=== PATIENT | female | born 1990 | race Two or more races ===

== ENCOUNTER 2024-12-21 08:09 | Outpatient (AMB) | payer BC, OTHER, SELFPAY ==
[2024-12-21 08:26] VITALS: BP 117/78; PULSE 73; RESP 18; TEMP 36.2; O2SAT 99; BMI 33.5
--- NOTE | 2024-12-21 08:26 | AMB.GYNCLNOT ---
Vital Signs 12/21/24 08:26 Height 1.55 m Height Method Stated Weight 80.456 kg Weight Measurement Method Standing Scale BMI 33.5 BP 117/78 Blood Pressure Source Automatic Cuff Blood Pressure Location Left Upper Arm Position Sitting Respiration 18 Pulse 73 Pulse Source Monitor Temp 97.2 F Temp Source Oral Pulse Oximetry (%) 99 Oxygen Delivery Method Room Air Allergies/Home Meds Allergies & Medications Allergies No Known Allergies Allergy (Verified 12/21/24 08:27) Medication Reconciliation doxycycline monohydrate 100 mg capsule 100 mg PO BID #14 caps 12/21/24 [Rx] ibuprofen 800 mg tablet 800 mg PO TID 14 days #42 tabs 12/21/24 [Rx] metronidazole 500 mg tablet 500 mg PO BID 14 days #28 tabs 12/21/24 [Rx] Intake Visit Data Collection New Patient or Established: Established Patient (seen at [facility] within 3 years) Reason for Visit:: pelvic pain and f/u sono results Seen by Clinical Staff ONLY (RN/MA): No Nutrition Technician Required: No Do You Feel Safe at Home: Yes Authorities Contacted: N/A PCP or OBGYN visit in last 3 months: Yes Hx Now: No Are you currently on any form of Control: No Last menstrual period: 12/18/24 Pain Present Currently: No Pain Scale Used: Patel-Bourgeois/Numerical Pain scale:: 0 Smoking Status Smoking Status: Never smoker Rn Clinical Review history Rn Clinical Review History Menstrual regularity: regular Flow: normal Monthly: Yes Age at menarche: 13 Menopausal: No Currently sexually active: Yes If not currently sexually active, have you ever been sexually active: Yes Questionnaires Covid-19 Vaccine Questionnaire Has patient been vacinated for Covid-19 Have you been vacinated for Covid-19: Yes PHQ-9 PHQ-2 Over the last 2 weeks, how often have you been bothered by any of the following problems? 1. Little interest or pleasure in doing things: not at all 2. Feeling down, depressed, or hopeless: not at all Total score: 0 PHQ-9 3. Trouble falling or staying asleep, or sleeping too much: Not at all 4. Feeling tired or having little energy: Not at all 5. Poor appetite or overeating: Not at all 6. Feeling bad about yourself - or that you are a failure or have let yourself or your family down: Not at all 7. Trouble concentrating on things, such as reading the newspaper or watching television: Not at all 8. Moving or speaking so slowly that other people could have noticed? - Or the opposite - being so fidgety or restless that you have been moving around a lot more than usual: not at all 9. Thoughts that you would be better off or of hurting yourself in some way: Not at all Total score: 0 If you checked off any problems, how difficult have these problems made it for you to do your work, take care of things at home, or get along with other people?: not difficult at all Source: Developed by Drs. Jesús Garcia, Bee Rodriguez, Emanuel Miller and colleagues, with an educational melany from [employer]. Depression screen completed yes Social History Living Situation History Marital Status: Single Lives With: Family Housing: House Tobacco History Smoking Status: Never smoker Alcohol History Alcohol Intake: Never Domestic Abuse History Do You Feel Safe at Home: Yes Past Medical History Past Medical History Have you ever been diagnosed with any of the following: History of Present Illness HPI Narrative 34-year-old 3 para 2 comes today with complaints of low pelvic pain, backache and neck, breast tenderness for 5 weeks. Last period December 18. Menses is normal flow. Increased cramping. Reports periods are every month. Patient reports pelvic pain is 5 out of 10. Patient was seen by her primary care. Labs and ultrasound were done. Denies social habits. Denies surgery. And denies existence of chronic illnesses. Patient denies complaints of vaginitis. Reports dyspareunia for the last 4 months as well. Denies UTI symptoms. Denies change in vaginal discharge. Review of Systems Review of Systems Systems Reviewed: All systems reviewed, normal except as documented Exam Narrative Physical exam: Abdomen soft and nontender. No masses palpated. No complaints of pain with palpation. External genitalia is clean. No lesions. Vagina pink with small menses. No foul odor. No cervical motion tenderness. Normal pelvic exam, test was done December 10 and that was negative. Urine culture was negative. No growth. WBCs were normal 9.7. H&H were 13.3 and 42. Normal platelets. CMP was normal. Pelvic ultrasound showed normal size uterus. There was a 0.9 cm x 0.7 cm central endometrial fluid. Ultrasound felt that findings were consistent with hematom metria or pyometria. Normal endometrial stripe. Ovaries normal size. There are multiple small cysts less than 0.8 cm in both ovaries General Limitations: no limitations General Appearance: alert, in no apparent distress, comfortable, cooperative, healthy appearing, well developed and well groomed Neck Neck exam: Present normal inspection, full ROM and trachea midline Chest Chest inspection: Present normal inspection and symmetric chest wall rise Resp Respiratory exam: Present normal lung sounds bilaterally Card Cardiovascular exam: Present regular rate, normal rhythm and normal heart sounds Abdominal Abdominal exam: Present soft and normal bowel sounds Psych Psychiatric exam: Present normal affect and normal mood Assessment & Plan Diagnosis / Problem List (1) Female pelvic inflammatory disease, unspecified: Status: Acute (2) Candidiasis of female genitalia: Status: Acute Plan Consult was DESKTOP SUPPORT TECHNICIAN. Patient needs ceftriaxone 500 mg IM. Not available in stock. Patient will be called when available. Started on doxycycline 100 twice daily x 14 days and metronidazole 500 mg p.o. twice daily x 14 days. New swab plus was collected. Discussed ultrasound findings with patient. Patient to return in 2 weeks for follow-up Additional Plan Follow Up: 2 Weeks (call patient with ceftriaxone available, rtc 2 week f/u) Office Procedures OB Clinic LOC & Office Proc's Nursing/Assessment Patient Status: Established Patient OB Clinic Nursing Assessment: BP Monitoring, Medication Reconciliation, Update PMH in EMR and Vital Signs OB Clinic Coordination of Care: Consent,records obtained, informed consent, Education Simp Pt/Fam, Lab and Imaging orders and Staff clarify orders Established Patient Charge Established Patient Point Assignment: 90 Established Patient Point Charge: EP Level 3 (80-115)
--- NOTE | 2024-12-21 08:26 | AMB.GYNCLNOT ---
Vital Signs 12/21/24 08:26 Height 1.55 m Height Method Stated Weight 80.456 kg Weight Measurement Method Standing Scale BMI 33.5 BP 117/78 Blood Pressure Source Automatic Cuff Blood Pressure Location Left Upper Arm Position Sitting Respiration 18 Pulse 73 Pulse Source Monitor Temp 97.2 F Temp Source Oral Pulse Oximetry (%) 99 Oxygen Delivery Method Room Air Allergies/Home Meds Allergies & Medications Allergies No Known Allergies Allergy (Verified 12/21/24 08:27) Medication Reconciliation doxycycline monohydrate 100 mg capsule 100 mg PO BID #14 caps 12/21/24 [Rx] ibuprofen 800 mg tablet 800 mg PO TID 14 days #42 tabs 12/21/24 [Rx] metronidazole 500 mg tablet 500 mg PO BID 14 days #28 tabs 12/21/24 [Rx] Intake Visit Data Collection New Patient or Established: New Patient (never been to [facility]) (for pelvic pain and pelvic sono results) Reason for Visit:: pelvic pain and pelvic sono results Do You Feel Safe at Home: Yes Authorities Contacted: N/A PCP or OBGYN visit in last 3 months: Yes Smoking Status Smoking Status: Never smoker Questionnaires Social History Tobacco History Smoking Status: Never smoker Alcohol History Alcohol Intake: Never Domestic Abuse History Do You Feel Safe at Home: Yes Past Medical History Past Medical History Have you ever been diagnosed with any of the following: History of Present Illness HPI Narrative 34 yo for complaints of low pelvic pain, back ache and breast tenderness x 4 month. Patient also complains of dyspareunia. lmp 12/18/24 x 6 days, q month. increase cramps with menses. no complaints of vaginitis, normal discharge per patient. denies fever and chils. pain 5/10. Does not take NSAID. Monogamous. Patient denies history of chronic illness. Denies surgeries. Denies social habits. Pelvic sono and labs were drawn by family practice provider Review of Systems Review of Systems Systems Reviewed: All systems reviewed, normal except as documented Exam Narrative Physical exam: Vital signs stable. Lungs clear no wheezes. Abdomen was soft. No masses palpated. No rebound tenderness. No complaints of pain with palpation. Pelvic exam was normal. No lesions seen. No unusual discharge noted no cervical motion tenderness. General Limitations: no limitations General Appearance: alert, in no apparent distress, comfortable, cooperative, healthy appearing, well developed and well groomed Chest Chest inspection: Present normal inspection and symmetric chest wall rise Resp Respiratory exam: Present normal lung sounds bilaterally Card Cardiovascular exam: Present regular rate, normal rhythm and normal heart sounds Abdominal Abdominal exam: Present soft and normal bowel sounds Psych Psychiatric exam: Present normal affect and normal mood Assessment & Plan Diagnosis / Problem List (1) Female pelvic inflammatory disease, unspecified: Status: Acute Assessment and Plan: CBC notable findings. WBCs were 9.7. Urinalysis was clear. Negative nitrites. No WBCs. test was negative. There is no yeast or trichomonas in the urine. Pelvic sono uterus was normal size and shape. Endometrial stripe was normal. There was a collection of endometrial fluid consistent with hematometria or pyrometria present in the uterus. Both are ovaries normal shape. And there were several small cysts in each ovary. (2) Candidiasis of female genitalia: Status: Acute Plan Consult with NEGOTIATOR. Start patient on ceftriaxone 500 mg IM. There is no ceftriaxone in stock. Patient will come back once ceftriaxone is available for injection. Started patient on metronidazole 500 twice daily x 14 days. And doxycycline 100 mg p.o. twice daily x 14 days. New swab plus was collected. Discussed possible results with patient. And reschedule patient in 2 weeks for follow-up with HOSPITAL ADMISSIONS OFFICER. Ibuprofen 800 3 times daily with food for inflammation. Additional Plan Follow Up: 2 Weeks (call patient with ceftriaxone available, rtc 2 week f/u) Office Procedures OB Clinic LOC & Office Proc's Nursing/Assessment Patient Status: Established Patient OB Clinic Nursing Assessment: BP Monitoring, Medication Reconciliation, Update PMH in EMR and Vital Signs OB Clinic Coordination of Care: Consent,records obtained, informed consent, Education Simp Pt/Fam, Lab and Imaging orders and Staff clarify orders Established Patient Charge Established Patient Point Assignment: 90 Established Patient Point Charge: EP Level 3 (80-115)
== END 2024-12-21 09:06 | disposition home or self-care (01) ==
LOC: HODSOBC 08:09
PROVIDERS: PCP Family Medicine; Referring Provider Family Medicine; Supervising Provider Obstetrics & Gynecology; Visit Provider Advanced Practice Midwife
DX: N73.9 Female pelvic inflammatory disease, unspecified (principal); B37.49 Other urogenital candidiasis; N83.202 Unspecified ovarian cyst, left side; N83.201 Unspecified ovarian cyst, right side
CPT/HCPCS: 99213; G0463

== ENCOUNTER 2024-12-22 12:59 | Outpatient (AMB) | payer BC, OTHER, SELFPAY ==
[2024-12-22 13:21] VITALS: BP 120/78; PULSE 80; RESP 18; TEMP 36.2; O2SAT 97; BMI 33.8
--- NOTE | 2024-12-22 13:21 | AMB.GYNCLNOT ---
Vital Signs 12/22/24 13:21 Height 1.55 m Height Method Stated Weight 81.306 kg Weight Measurement Method Standing Scale BMI 33.8 BP 120/78 Blood Pressure Source Automatic Cuff Blood Pressure Location Left Upper Arm Position Sitting Respiration 18 Pulse 80 Pulse Source Monitor Temp 97.2 F Temp Source Oral Pulse Oximetry (%) 97 Oxygen Delivery Method Room Air Allergies/Home Meds Allergies & Medications Allergies No Known Allergies Allergy (Verified 12/22/24 13:22) Medication Reconciliation doxycycline monohydrate 100 mg capsule 100 mg PO BID #14 caps 12/21/24 [Rx Confirmed 12/22/24] ibuprofen 800 mg tablet 800 mg PO TID 14 days #42 tabs 12/21/24 [Rx Confirmed 12/22/24] metronidazole 500 mg tablet 500 mg PO BID 14 days #28 tabs 12/21/24 [Rx Confirmed 12/22/24] ceftriaxone 500 mg solution for injection 500 mg IM QDAY 1 day #1 ea 12/22/24 [Rx] Intake Visit Data Collection New Patient or Established: Established Patient (seen at [facility] within 3 years) Reason for Visit:: treatment for PID infection Seen by Clinical Staff ONLY (RN/MA): No Director Of Guidance In Public Schools Required: No Do You Feel Safe at Home: Yes Authorities Contacted: N/A PCP or OBGYN visit in last 3 months: Yes Date of Last PCP or OBGYN visit: 12/21/24 Hx Now: No Are you currently on any form of Control: No Pain Present Currently: No Pain Scale Used: Patel-Bourgeois/Numerical Pain scale:: 0 Smoking Status Smoking Status: Never smoker 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 1. Little interest or pleasure in doing things: not at all 2. Feeling down, depressed, or hopeless: not at all Total score: 0 PHQ-9 4. Feeling tired or having little energy: Not at all 5. Poor appetite or overeating: Not at all 6. Feeling bad about yourself - or that you are a failure or have let yourself or your family down: Not at all 7. Trouble concentrating on things, such as reading the newspaper or watching television: Not at all 8. Moving or speaking so slowly that other people could have noticed? - Or the opposite - being so fidgety or restless that you have been moving around a lot more than usual: not at all 9. Thoughts that you would be better off or of hurting yourself in some way: Not at all If you checked off any problems, how difficult have these problems made it for you to do your work, take care of things at home, or get along with other people?: not difficult at all Source: Developed by Drs. Jesús Garcia, Bee Rodriguez, Emanuel Miller and colleagues, with an educational melany from [employer] Depression screen completed yes Social History Living Situation History Lives With: Family Housing: House Tobacco History Smoking Status: Never smoker Alcohol History Alcohol Intake: Never Domestic Abuse History Do You Feel Safe at Home: Yes Past Medical History Past Medical History Have you ever been diagnosed with any of the following: History of Present Illness HPI Narrative 34-year-old 3 para 2 here today for Rocephin 500 mg IM x 1. Patient was seen at last visit for exposure to PID. LMP 12/18/24. Patient reports that she has no increase in pain. No fever no chills. Patient is compliant with doxycycline 100 twice daily x 14 days and she is also taking Flagyl 500 mg twice daily. Denies any side effects from either medication. Patient is taking ibuprofen 800 3 times daily as needed for discomfort. No increased complaints of vaginitis. Patient had denied any chronic medical illnesses. Denies allergies to medications Assessment & Plan Diagnosis / Problem List (1) Exposure to PID (pelvic inflammatory disease): Status: Acute Plan Rocephin 500 mg IM x 1. Continue doxycycline 100 mg p.o. twice daily for 14 days and Flagyl 500 mg p.o. twice daily for 14 days. Follow-up appointment in 2 weeks for lab results. And then patient will be seen in 4 weeks to repeat ultrasound and repeat NuSwab. Additional Plan Follow Up: 2 Weeks (results) Office Procedures OB Clinic LOC & Office Proc's Nursing/Assessment Patient Status: Established Patient OB Clinic Nursing Assessment: BP Monitoring, Medication Reconciliation, Update PMH in EMR and Vital Signs OB Clinic Coordination of Care: Consent,records obtained, informed consent, Education Simp Pt/Fam, Lab and Imaging orders and Staff clarify orders Established Patient Charge Established Patient Point Assignment: 90 Established Patient Point Charge: EP Level 3 (80-115) Injection/Vaccine Admin SQ Im Injection: Yes Office Meds ceftriaxone 500 mg solution for injection Performing Provider: Leandra Arvizu CNM Performing Location: [facility] Administered by: Lauryn Mayers MA on 12/22/24 15:48 Dose Route Admin Location Dispensed Lot Number Expiration Date [facility] Licensed Chemical Spray Technician 500 mg IM GLUTE 500 mg [id number] 08/02/26 [address]-7 [employer] Sterile Water for Injection Performing Provider: Leandra Arvizu CNM Performing Location: [facility] Administered by: Lauryn Mayers MA on 12/22/24 15:51 Dose Route Admin Location Dispensed Lot Number Expiration Date [facility] Licensed Chemical Spray Technician 3 mL .Route GLUTE 10 mL [id number] 05/02/27 2741-4390-61 [facility]
== END 2024-12-22 13:30 | disposition home or self-care (01) ==
LOC: HODSOBC 12:59
PROVIDERS: PCP Advanced Practice Midwife; Referring Provider Advanced Practice Midwife; Supervising Provider Advanced Practice Midwife; Visit Provider Advanced Practice Midwife
DX: Z20.2 Contact with and (suspected) exposure to infections with a predominantly sexual mode of transmission (principal)
CPT/HCPCS: 96372; 99213; J0696; J7051; G0463

== ENCOUNTER 2025-01-13 08:30 | Outpatient (AMB) | payer BC, OTHER, SELFPAY ==
[2025-01-13 08:39] VITALS: BP 109/74; PULSE 69; RESP 14; TEMP 36.6; O2SAT 98; BMI 33.5
--- NOTE | 2025-01-13 08:39 | GYNCLNT_ITS ---
Vital Signs 01/13/25 08:39 Height 1.55 m Height Method Stated Weight 80.456 kg Weight Measurement Method Standing Scale BMI 33.5 BP 109/74 Blood Pressure Source Automatic Cuff Blood Pressure Location Right Upper Arm Position Sitting Respiration 14 Pulse 69 Pulse Source Monitor Temp 98 F Temp Source Oral Pulse Oximetry (%) 98 Oxygen Delivery Method Room Air Allergies/Home Meds Allergies & Medications Allergies No Known Allergies Allergy (Verified 01/13/25 08:41) Medication Reconciliation doxycycline monohydrate 100 mg capsule 100 mg PO BID #14 caps 12/21/24 [Rx Confirmed 01/13/25] fluconazole 150 mg tablet 150 mg PO QDAY 3 days #3 tabs 01/13/25 [Rx] Intake Visit Data Collection New Patient or Established: Established Patient (seen at [facility] within 3 years) Reason for Visit:: ANTIBIOTICS FOLLOW UP Seen by Clinical Staff ONLY (RN/MA): No Director Of Graduate Admissions Required: No Do You Feel Safe at Home: Yes Authorities Contacted: N/A PCP or OBGYN visit in last 3 months: Yes Hx Now: No Are you currently on any form of Control: No Last menstrual period: 12/30/24 Pain Present Currently: No Pain Scale Used: Patel-Bourgeois/Numerical Pain scale:: 0 Smoking Status Smoking Status: Never smoker 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 1. Little interest or pleasure in doing things: not at all 2. Feeling down, depressed, or hopeless: not at all Total score: 0 PHQ-9 3. Trouble falling or staying asleep, or sleeping too much: Not at all 4. Feeling tired or having little energy: Not at all 5. Poor appetite or overeating: Not at all 6. Feeling bad about yourself - or that you are a failure or have let yourself or your family down: Not at all 7. Trouble concentrating on things, such as reading the newspaper or watching television: Not at all 8. Moving or speaking so slowly that other people could have noticed? - Or the opposite - being so fidgety or restless that you have been moving around a lot more than usual: not at all 9. Thoughts that you would be better off or of hurting yourself in some way: Not at all Total score: 0 Source: Developed by Drs. Jesús Garcia, Bee Rodriguez, Emanuel Miller and colleagues, with an educational melany from [employer]. Depression screen completed yes Social History Living Situation History Lives With: Family Housing: House Tobacco History Smoking Status: Never smoker Alcohol History Alcohol Intake: Never Domestic Abuse History Do You Feel Safe at Home: Yes History of Present Illness HPI Narrative 34 yo for f/u on ovary pain. previous sono showed pelvic fluid and indication of probable pID. patient was treated with Doxycycline and Rocephin x1. nuswab plus was negative. c/o vag itch and burning with void. ovaries feel better,no pain. lmp 12/22/24, q month. no contraception,no surgery,no social habit Review of Systems Review of Systems Systems Reviewed: All systems reviewed, normal except as documented Exam Narrative Physical exam: abdomen soft, non tender,no masses, perineum clear,no lesions, vagina red, small white,curdy discharge General Limitations: no limitations General Appearance: alert, in no apparent distress, comfortable, cooperative, healthy appearing, well developed and well groomed Head Head exam: atraumatic, normocephalic and normal inspection Chest Chest inspection: Present normal inspection and symmetric chest wall rise Resp Respiratory exam: Present normal lung sounds bilaterally Card Cardiovascular exam: Present regular rate, normal rhythm and normal heart sounds Abdominal Abdominal exam: Present soft and normal bowel sounds Psych Psychiatric exam: Present normal affect and normal mood Results Objective Laboratory: Nuswab: negative gc/ct/BV Office Procedures OB Clinic LOC & Office Proc's Nursing/Assessment Patient Status: Established Patient OB Clinic Nursing Assessment: Medication Reconciliation, Update PMH in EMR and Vital Signs OB Clinic Coordination of Care: Complex Care and Chronic Disease 1-5, Consent,records obtained, informed consent, Education Simp Pt/Fam, Lab and Imaging orders, Results/Orders obtained and Staff clarify orders Miscellaneous Interventions: Pelvic Culture Established Patient Charge Established Patient Point Assignment: 115 Established Patient Point Charge: EP Level 3 (80-115) Assessment & Plan Diagnosis / Problem List (1) Female pelvic inflammatory disease, unspecified: Status: Acute (2) Candidiasis of female genitalia: Status: Acute Plan nuswab plus today, f/u pelvic sono. Diflucan 150 x3, comfort measure for vaginitis. discuss diet and exercise. rtc for results after sono Additional Plan Follow Up: 2 Weeks (results)
== END 2025-01-13 08:54 | disposition home or self-care (01) ==
LOC: HODSOBC 08:30
PROVIDERS: PCP Advanced Practice Midwife; Referring Provider Advanced Practice Midwife; Supervising Provider Obstetrics & Gynecology; Visit Provider Advanced Practice Midwife
DX: N73.9 Female pelvic inflammatory disease, unspecified (principal); B37.49 Other urogenital candidiasis
CPT/HCPCS: 99213; G0463

== ENCOUNTER 2025-02-03 22:28 | Emergency (ER) | payer BC, OTHER, SELFPAY ==
[2025-02-03 22:29] VITALS: BMI 32.1
--- NOTE | 2025-02-04 00:41 | EKG_ITS ---
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
[2025-02-04 00:52] VITALS: BP 116/78; PULSE 88; RESP 18; TEMP 36.8; O2SAT 97
[2025-02-04 02:29] LABS: Strep A Rapid Negative (Negative)
[2025-02-04 04:33] VITALS: RESP 18
--- NOTE | 2025-02-04 05:44 | EDNOTE_ITS ---
Upper Respiratory Inf. RME/HPI General Chief Complaint: Chest Pain Stated Complaint: HEADACHE AND CHEST PAIN Time Seen by Provider: 02/04/25 01:40 Arrival date/time: 02/03/25 22:28 34F with no significant PMH presents to ED with several days of upper chest/throat pain and cough, as well as DAVIS. Limitations: no limitations Related Data Previous Rx's ?Medication ?Instructions ?Recorded doxycycline monohydrate 100 mg 100 mg PO BID #14 caps 12/21/24 capsule Allergies Allergy/AdvReac Type Severity Reaction Status Date / Time No Known Allergies Allergy Verified 02/03/25 22:29 Review of Systems Review of Systems Systems Reviewed: All systems reviewed, normal except as documented Constitutional Constitutional: Reports system reviewed and no additional complaints, except as documented, Denies fever(s) and Denies headache(s) ENT Ears, Nose, Mouth, and Throat: Reports as per HPI, Denies disequilibrium, Denies headache(s) and Reports sore throat Cardiovascular Cardiovascular: Reports system reviewed and no additional complaints, except as documented, Denies chest pain and Denies dyspnea Respiratory Respiratory: Reports system reviewed and no additional complaints, except as documented, Reports as per HPI, Reports cough and Denies dyspnea Gastrointestinal Gastrointestinal: Reports system reviewed and no additional complaints, except as documented, Denies abdominal pain, Denies nausea and Denies vomiting Neurologic Neurologic: Reports system reviewed and no additional complaints, except as documented, Denies confusion, Denies disequilibrium and Denies headache(s) Psychiatric Psychiatric: Denies confusion Past Medical History Social History SMOKING STATUS: Never smoker SUBSTANCE USE: does not use ED Exam General Limitations: Present no limitations General appearance: Present alert and in no apparent distress Head Head exam: Present atraumatic Eye Eye exam: Present normal appearance, PERRL and EOMI ENT ENT exam: Present mucous membranes moist Expanded ENT Exam Throat exam: Present tonsillar erythema; Absent tonsillomegaly, tonsillar exudate, R peritonsillar mass, L peritonsillar mass or muffled voice Neck Neck exam: Present normal inspection, full ROM and trachea midline Chest Chest inspection: Present normal inspection and symmetric chest wall rise Respiratory Respiratory exam: Present normal lung sounds bilaterally Cardiovascular Cardiovascular exam: Present regular rate, normal rhythm and normal heart sounds Abdominal Exam Abdominal exam: Present soft and normal bowel sounds Extremities Exam Extremities exam: Present normal inspection and full ROM Back Exam Back exam: Present normal inspection and full ROM Neurological Exam Neurological exam: Present alert, oriented X3 and CN II-XII intact Psychiatric Psychiatric exam: Present normal affect and normal mood Skin Skin exam: Present warm, dry, intact and normal color Course Quality Measures none Orders Category Date Time Status Bedside COVID-19 Antigen Test NOW Care 02/04/25 01:40 Completed Bedside Influenza A&B Antigen Test NOW Care 02/04/25 01:40 Completed EKG (ED ONLY) *Do not use* NOW Care 02/04/25 00:41 Completed EKG (ED Only) Stat Exams 02/04/25 00:41 Draft Strep A Rapid Stat Lab 02/04/25 01:46 Completed Naproxen [Naprosyn] Med 02/04/25 01:40 Discontinued 500 mg PO X1 ONE Vital Signs Vital signs: Vital Signs Temperature 98.3 F 02/04/25 00:52 Pulse Rate 88 02/04/25 00:52 Respiratory Rate 18 02/04/25 00:52 Blood Pressure 116/78 02/04/25 00:52 Pulse Oximetry (%) 97 02/04/25 00:52 Oxygen Delivery Method Room Air 02/04/25 00:52 O2 at 97% on RA and WNLs Upper Respiratory Infection MDM Narrative MDM Narrative:: 34F with no significant PMH presents to ED with several days of upper chest/throat pain and cough, as well as DAVIS. Physical exam reveals red oropharynx, but clear lungs and normal WOB. Patient is afebrile, calm, and alert. EKG is NSR. Swabs neg. Likely viral URI. Patient data External records reviewed:: [facility] previous records Clinical information provided by:: patient Social determinants that could affect healthcare access:: none Patient has the following chronic illnesses:: none How is presenting disease/condition affected by chronic disease/condition?: no chronic disease Evaluation data The following diagnostics were reviewed and interpreted by me:: lab results and EKG tracing(s) Lab and/or radiology exams considered but not ordered:: ordered Interpretation Summary: above Medications / Prescriptions Medications or Prescriptions considered but not ordered:: ordered Medication administrations:: Medication Administration History Discontinued Medications Naproxen (Naproxen 250 Mg Tablet) 500 mg PO X1 ONE Stop: 02/04/25 01:41 not given by staff Consultations Consultation(s) initiated? (list below): No Diagnosis Upper Respiratory Differential Diagnosis: upper respiratory infection, croup, otitis media, sinusitis, viral infection, bronchitis, influenza and pharyngitis Most likely diagnosis given after review of the tests above:: URI Admission Indicated Admission indicated?: not indicated Admission Request Was there a request for admission?: No Disposition Plan Disposition Plan: Discharge Discharge Attestation Discharge Attestation: The patient and all family members were given an opportunity to ask questions and understood the discharge instructions. Discharge instructions specifically effects, indications for sooner follow up or return to the emergency department, and the expected course of current diagnosis. Patient condition: Stable Discharge Plan Plan Patient Disposition: HOME (Self Care) Discharge Disposition comment: Stable Prescriptions/Referrals Prescriptions/Med Rec: No Action ceftriaxone 500 mg recon soln 500 mg IM ONCE Qty: 1 0RF doxycycline monohydrate 100 mg capsule 100 mg PO BID Qty: 14 0RF Referrals: SAVITA ACOSTA [Primary Care Provider] - In 1 week Problem List Clinical Impression: URI (upper respiratory infection) Patient/Caregiver Discharge Instructions Education Materials: ED URI, Viral, No Abx (Adult) Additional Instructions: Please follow-up with PCP within 24-48 hours and return immediately if symptoms worsen. Ibuprofen/Tylenol can be used simultaneously for greater fever/pain control. Benadryl is good for cough, congestion, and sleep. Print Language: Georgian Stand Alone Forms: Patient Portal Info Letter BHANU/MARLENE Supervising Physician BHANU/MARLENE Supervising Physician: Dr. Doss
== END 2025-02-04 04:34 | disposition home or self-care (01) ==
PROVIDERS: Physician Assistant; Emergency Provider Emergency Medicine; PCP Nurse Practitioner Family
DX: J06.9 Acute upper respiratory infection, unspecified (principal)
CPT/HCPCS: 87400; 87651; 87811; 93005; 99283

== ENCOUNTER → 2025-04-09 | Outpatient (CLI) | payer BC, OTHER, SELFPAY ==
[2025-04-09 08:34] LABS: Basophils # (Auto) 0.0 Thou/mm3 (0.0-0.2); Basophils % (Auto) 1 % (0-2.5); Eosinophils # (Auto) 0.3 Thou/mm3 (0.0-0.5); Eosinophils % (Auto) 3 % (0-10); Hematocrit 40.9 % (36.0-46.0); Hemoglobin 13.8 g/dL (12.0-16.0); Immature Granulocytes Auto 0.04 Thou/mm3 (0.00-0.00); Lymphocytes # (Auto) 2.5 Thou/mm3 (1.0-4.8); Lymphocytes % (Auto) 32 % (10-50); Mean Corpuscular HGB Conc 33.7 g/dl (31.0-37.0); Mean Corpuscular Hemoglobin 28.5 pg (25.0-35.0); Mean Corpuscular Volume 85 fL (80-100); Monocytes # (Auto) 0.4 Thou/mm3 (0.0-0.8); Monocytes % (Auto) 5 % (0-12); Neutrophils # (Auto) 4.7 Thou/mm3 (1.8-7.7); Neutrophils % (Auto) 59 % (37-80); Nucleated Red Blood Cell # 0.00 Thou/mm3 (0.00-0.00); Nucleated Red Blood Cell % 0 /100 WBC (0); Platelet Count 379 Thou/mm3 (140-440); RDW Standard Deviation 39.4 fL (36.4-46.3); Red Blood Count 4.84 Miln/mm3 (4.00-5.20); White Blood Count 8.0 Thou/mm3 (3.6-11.0)
[2025-04-09 08:43] LABS: Glucose Estimated Average 114 mg/dL (80-131); Hemoglobin A1C 5.6 % Hgb (4.8-6.0)
[2025-04-09 08:56] LABS: Vitamin B12 590 pg/mL (211-911); Vitamin D 25 Hydroxy Total 35.4 ng/mL (7.3-40.2)
[2025-04-09 09:03] LABS: Alanine Aminotransferase 38 U/L (10-49); Albumin, Serum 4.6 gm/dL (3.5-5.0); Albumin/Globulin Ratio 2.0 (1.2-2.2); Alkaline Phosphatase 67 U/L (46-116); Anion Gap 9 (7-16); Aspartate Amino Transferase 23 U/L (0-34); BUN/Creatinine Ratio 15 Ratio (12-20); Bilirubin,Total 0.7 mg/dL (0.3-1.2); Blood Urea Nitrogen 12 mg/dL (9-23); Calcium 9.6 mg/dL (8.3-10.6); Calcium (Corrected) 9.6 mg/dL (8.5-10.1); Carbon Dioxide 27.4 mMol/L (20.0-31.0); Cardiac Risk Estimate 4.5 RATIO (3.7-5.6); Chloride 105 mMol/L (98-107); Cholesterol 163 mg/dL (132-200); Creatinine (Component) 0.8 mg/dL (0.6-1.3); Globulin 2.3 gm/dL (2.3-3.5); Glucose 112 mg/dL (74-106); HDL Cholesterol 36 mg/dL (40-60); LDL Cholesterol,Calculated 115 mg/dL (0-130); Osmolality,Calculated 281 (275-295); Potassium 5.4 mMol/L (3.4-5.1); Sodium 141 mMol/L (136-145); Thyroid Stimulating Hormone 1.60 uIU/mL (0.55-4.78); Total Protein 6.9 gm/dL (5.7-8.2); Triglycerides 60 mg/dL (30-150); eGFR > 60 See Note
== END | disposition home or self-care (01) ==
PROVIDERS: PCP Family Medicine; Referring Provider Student in an Organized Health Care Education/Training Program; Visit Provider Student in an Organized Health Care Education/Training Program
DX: E55.9 Vitamin D deficiency, unspecified (principal); R53.83 Other fatigue; R73.03 Prediabetes; Z13.220 Encounter for screening for lipoid disorders; Z82.49 Family history of ischemic heart disease and other diseases of the circulatory system; Z83.3 Family history of diabetes mellitus
CPT/HCPCS: 36415; 80053; 80061; 82306; 82607; 83036; 84443; 85025

== ENCOUNTER → 2025-04-16 | Outpatient (CLI) | payer BC, OTHER, SELFPAY ==
[2025-04-16 09:52] LABS: Potassium 4.1 mMol/L (3.4-5.1)
== END | disposition home or self-care (01) ==
PROVIDERS: PCP Student in an Organized Health Care Education/Training Program; Referring Provider Student in an Organized Health Care Education/Training Program; Visit Provider Student in an Organized Health Care Education/Training Program
DX: E87.5 Hyperkalemia (principal)
CPT/HCPCS: 36415; 84132